=== PATIENT | male | born 1990 | race Caucasian/White ===

== ENCOUNTER 2023-07-18 15:29 | Inpatient (IN) | payer OTHER, SELFPAY ==
[2023-07-18 15:29] VITALS: BP 130/74; PULSE 83; RESP 16; TEMP 36.8; O2SAT 100
[2023-07-18 15:34] VITALS: BMI 27.3
[2023-07-18] MEDS: ibuprofen 600 mg Tablet PO (16:08)
--- NOTE | 2023-07-18 16:48 | PC.NURSE ---
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 He said he then became frustrated because he was having issues applying for a job and was losing his inheritance so he started having thoughts of shooting himself. He stated he would've followed through if he had a gun. Patient says he has been in a spiritual war for a long time. Patient did endorse previous and current visual hallucinations. He said, I just saw my black energy shoot up, as he pointed to the ceiling. Patient also states he sees stars and vividly saw a black and wasp fighting until the wasp turned into a black . He endorses SI yesterday, but when asked if he has any thoughts today he stated, not in the flesh, but I want to put certain thoughts to . Denies HI at this time. Patient is paranoid and says the illuminati is listening and hearing everything, including his and this RN's conversation. Patient spoke up midconversation and stated, I'll do it like the egyptians. They get mummified and then go get the other knowledges and come back to themselves, ya know. He said he had spent a significant amount of time either incarcerated or hospitalized. He listed [facility], and [facility] as a few facilities he was hospitalized at. He currently has a court date of 07/26/23 for possession of methamphetamine and paraphernalia. Patient does admit to use of alcohol, tobacco, and marijuana recently. He also admits to using methamphetamine 2 months ago. Patient cooperative with assessment, but is very animated and very flighty in his thought process.
[2023-07-18] MEDS: trazodone 50 mg Tablet PO (19:54)
[2023-07-18] MEDS: acetaminophen 325 mg Tablet 650 MG PO (19:54)
[2023-07-18] MEDS: OLANZapine 5 mg ODT PO (19:54)
[2023-07-18 20:02] VITALS: BP 119/73; PULSE 89; RESP 18; TEMP 36.9; O2SAT 96
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
[2023-07-19 06:00] VITALS: RESP 16
--- NOTE | 2023-07-19 07:40 | PC.NURSE ---
Patient denies avh and hi this morning. When asked if he has had any thoughts of hurting himself this morning he stated, not really. Well, a little. Like 5%. This RN then asked if anything in particular was triggering this and he replied, ya I talked to my dad last night and I'm gonna have to live with him. Or I could live with my aunt. But I just want to be on my own ya know? And I just can't right now.
[2023-07-19] MEDS: nicotine 21 mg Patch 1 PATCH TRANSDERMA (10:19)
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
--- NOTE | 2023-07-19 13:16 | NPU.GN ---
[facility] Group Topic:football General Mood of Group patient participated in throwing the football to staff and other patients
[2023-07-19 13:46] VITALS: BP 137/75; PULSE 108; RESP 16; TEMP 37; O2SAT 98
[2023-07-19] MEDS: ibuprofen 600 mg Tablet PO (14:56)
[2023-07-19] MEDS: nicotine 4 mg lozenge MUCOUS MEM (15:11)
[2023-07-19] MEDS: hyDROXYzine 25 mg Capsule 50 MG PO (16:40)
[2023-07-19] MEDS: OLANZapine 5 mg ODT PO (18:03)
--- NOTE | 2023-07-19 18:04 | PC.NURSE ---
Addendum entered by Brandy Blair RN 07/19/23 18:06: Zyprexa 10mg odt was given. Original Note: Patient becoming increasingly irritated because staff will not allow him to eat in his room or have his necklace back that he came in with. Patient was told he would be given the necklace when he left and that we had it locked up and safe. He remained agitated despite attempting to verbally de-escalate him. He then stormed off to his room.
[2023-07-19] MEDS: acetaminophen 325 mg Tablet 650 MG PO (18:22)
[2023-07-19] MEDS: nicotine 2 mg Gum BUCCAL (18:43)
[2023-07-19] MEDS: mirtazapine 15 mg Tablet PO (19:46)
[2023-07-19] MEDS: OXcarbazepine 300 mg Tablet PO (19:46)
[2023-07-19] MEDS: trazodone 50 mg Tablet PO (19:47)
[2023-07-19 20:08] VITALS: BP 138/75; PULSE 100; RESP 18; TEMP 36.8; O2SAT 98
[2023-07-20] MEDS: OLANZapine 5 mg ODT PO (05:17)
[2023-07-20 06:00] VITALS: BP 113/54; PULSE 76; RESP 16; O2SAT 98
[2023-07-20] MEDS: paliperidone ER 6 mg Tablet PO (08:50)
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
[2023-07-20] MEDS: ibuprofen 600 mg Tablet PO (11:32)
[2023-07-20] MEDS: nicotine 21 mg Patch 1 PATCH TRANSDERMA (13:23)
[2023-07-20 14:00] VITALS: BP 143/86; PULSE 93; RESP 16; TEMP 36.9; O2SAT 97
[2023-07-20 19:57] VITALS: BP 136/81; PULSE 84; RESP 18; TEMP 36.8; O2SAT 97
[2023-07-20] MEDS: mirtazapine 15 mg Tablet PO (20:25)
[2023-07-20] MEDS: OXcarbazepine 300 mg Tablet PO (20:25)
[2023-07-20] MEDS: trazodone 50 mg Tablet PO (20:25)
[2023-07-21 06:00] VITALS: BP 100/60; PULSE 55; RESP 16; O2SAT 92
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
[2023-07-21] MEDS: paliperidone ER 6 mg Tablet PO (08:38)
[2023-07-21] MEDS: nicotine 21 mg Patch 1 PATCH TRANSDERMA (12:39)
[2023-07-21 12:56] VITALS: BP 142/85; PULSE 95; RESP 17; TEMP 36.6; O2SAT 97
[2023-07-21] MEDS: ibuprofen 600 mg Tablet PO (13:27)
[2023-07-21] MEDS: nicotine 2 mg Gum BUCCAL (15:56)
[2023-07-21] MEDS: hyDROXYzine 25 mg Capsule 50 MG PO (18:13)
[2023-07-21 20:04] VITALS: BP 156/82; PULSE 85; RESP 18; TEMP 36.5; O2SAT 97
[2023-07-21] MEDS: mirtazapine 15 mg Tablet PO (20:41)
[2023-07-21] MEDS: OXcarbazepine 300 mg Tablet PO (20:41)
[2023-07-22 06:00] VITALS: BP 107/64; PULSE 77; RESP 16; TEMP 36.6; O2SAT 96
[2023-07-22] MEDS: paliperidone ER 6 mg Tablet PO (08:13)
[2023-07-22] MEDS: nicotine 21 mg Patch 1 PATCH TRANSDERMA (08:13)
[2023-07-22 14:00] VITALS: BP 125/79; PULSE 103; RESP 18; TEMP 36.5; O2SAT 96
[2023-07-22] MEDS: nicotine 2 mg Gum BUCCAL (15:09)
--- NOTE | 2023-07-22 15:09 | PC.NURSE ---
pt gave this nurse his nicotine patch at 1000 this morning.
--- NOTE | 2023-07-22 15:21 | W.PM.NPUDCS ---
Diagnoses at Discharge Discharge Diagnosis (1) Psychosis: Status: Acute (2) Schizophrenia: Status: Acute Reason for Visit Reason for Visit: Si Brief History: History of Present Illness Chuck Headley is a 33 year old male who presented to an outside hospital with psychosis was given an affidavit and transferred to [facility] and patient was admitted to the neuropsychiatric unit for definitive treatment of those issues. The patient presents today reporting that he currently takes Invega, Strattera, Trileptal, Hydroxyzine, and Remeron. He reports that a couple of days ago he had a really bad day, and he was just ready to end everything, and was having suicidal thoughts. He reports that he has had over twenty psychiatric hospitalizations, stating he has been in and out of the hospital since he was a kid. He reports that he goes to a local counseling center for outpatient services. He reports that he has been on many different medications. The patient endorses smoking cigarettes, up to a pack a day, depending on what he has available. He reports that he occasionally drinks alcohol. He reports that he was on Strattera once before, when he was about 9 or 10 years old, and it caused suicidal thoughts. He reports that Seroquel was effective in the past. He reports hearing audible voices and seeing things. He reports that he would wake up from dreams and feel confusion with what was reality. He endorses daily marijuana use, stating it helps with anxiety and with the voices. He reports that he has used methamphetamine, the first time when he was 28 years old, and looked to that for help with the ADHD, to replace Adderall. He used to use Adderall but hasn?t since being in school or having a job, he reports that when he was on Adderall, he was successful and prosperous. He reports that he has been to drug rehabilitation twice. He reports that he has had one DUI. He endorses other drug related charges. The patient reports that he first started having mental health issues at 7 years old. He saw mythical creatures. He would feel like something was coming to get him, and reports that he thinks someone did come to get him, but he can?t remember what happened or where he went. He reports that he knows certain things that he doesn?t know how he knows, but then will see it on television. He then talked about demons and good and evil. He reports that things would progress to where he was suicidal. He endorses passive wish, lack of enjoyment, low mood, sleep disturbance, and feelings of hopelessness, helplessness, and worthlessness. He reports when he is by himself feeling like he is not really by himself. He reports that he is not the origin of the suicidal thoughts or attempts, it comes from an outside source. And sometimes he is not strong enough to fight them. He reports that the previous antidepressants he has been on have not been effective. He reports that the Remeron seems to be helpful as far as sleep is concerned. He reports that he has tried Wellbutrin and Buspar. He reports that he hasn?t missed any doses of the Invega, but he was not sure about how high his dose is. We discussed that since he is having breakthrough symptoms it is an indication that he should probably be on a higher dose, when it is time for his next shot. His reports his last shot was about two weeks ago. PSYCHIATRIC HISTORY: As above. SUBSTANCE ABUSE HISTORY: As above. FAMILY HISTORY: The patient endorses mental health issues on his dad?s side of the family, reporting that his paternal great [facility] was [facility] the [facility] in her forties or fifties. He reports that he does not really know his mother that much. He endorses some addiction issues on both sides of the family. He is not aware of any suicide attempts or completions. DEVELOPMENTAL HISTORY: The patient reports that he was told that he was when he was born. The patient reports learning to walk and talk and meeting developmental milestones on time. The patient endorses learning support. PSYCHOSOCIAL HISTORY: The patient reports that his mother and father were not together at his , and there were no other children from that union. He reports that his mother had two or three other children. He describes his childhood as cool. He denies neglect or emotional, physical, or sexual abuse. He reports that he went to a boys? home when he was 15 years old. He was away from home for 8 ? years. When asked about traumatic events in his life, he spoke about the time that he was in the boys' home, and time he was in alf, as being tough. He reports that he did not graduate from high school, his highest grade was 11th grade. He endorses being heterosexual, with his longest relationship being 2 ? years. He has not been and has no children. He denies service. He endorses he is spiritual but does not have adventist affiliation. He reports his longest job was about three months. 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 He reports that he is lives in a trailer with his dad. LEGAL HISTORY: The patient reports he spent six or seven years in alf, the longest time at once was 2 ? years. MEDICAL HISTORY: Hospital Course Hospital Course He slowly acclimated to the individual, group and milieu therapies provided.? He presented reporting significant breakthrough symptoms of psychosis on the Invega Sustenna 156 mg dose. We gave him oral Invega and he quickly improved. We continued his other medications as well with positive results. We agreed that when he got his next injection close to the 234 mg IM of Invega. He was discharged with a prescription for that and oral dosing until his injection was due. He did have significant improvement.? He worked with the social work team for appropriate follow-up appointments. He was able to contract for safety outside of the hospital prior to discharge.? At the outside hospital, patient had routine laboratory studies which were within normal limits except for few outliers.? Additionally there was a general medical evaluation which was also within normal limits and revealed no new acute processes. Discharge Summary: At the time of discharge, he denied psychosis or lethality and his psychosis was resolving. Mood and anxiety were well managed.? Patient endorsed a plan to avoid all drugs of abuse and follow-up with the aftercare recommendations of the treatment team.? Patient was evaluated and deemed to be absent credible lethality, and received the maximum benefit from inpatient hospitalization, so he was discharged. Involuntary Hold Information 96 Hour Hold: 96 Hour Involuntary Admission: Yes 96 Hour Hold Ending Date: 07/23/23 Mental Status Exam MSE Comments: This is an overweight white male in hospital with adequate grooming and limited eye contact. Very full eisenberg. No abnormal movements except for mild psychomotor retardation. Mostly cooperative with exam in mild distress. Speech was slightly increased rate decreased volume. Mood described as okay affect subdued. Thought process linear. And mostly organized. Thought: He denied suicidal or homicidal ideation, he endorsed resolving paranoia and no significant delusions noted, he endorsed resolving auditory and denied visual hallucinations. Attention and concentration were intact memory appeared reliable but none were fully tested. Alert and oriented x3. Insight, judgment and impulse control limited Discharge Data Vitals: Last Vital Signs Temp 97.7 F 07/22/23 14:00 Pulse 103 H 07/22/23 14:00 Resp 18 07/22/23 14:00 BP 125/79 07/22/23 14:00 Pulse Ox 96 07/22/23 14:00 O2 Del Method Room Air 07/21/23 20:04 Discharge Plan Discharge Patient Disposition: Home Condition: Stable Prescriptions: New Invega Sustenna 234 mg/1.5 mL syringe 234 mg IM Q30D Qty: 1.5 2RF Rx Instructions: Injection 08/01/2023 then as directed Continued hydroxyzine HCl 50 mg tablet 50 mg PO BID PRN (Reason: Anxiety) 30 Days Qty: 30 1RF oxcarbazepine 300 mg tablet 300 mg PO BEDTIME 30 Days Qty: 30 1RF mirtazapine 15 mg tablet 15 mg PO BEDTIME 30 Days Qty: 30 1RF Invega 6 mg tablet extended release 24 hr 6 mg PO DAILY 10 Days Qty: 10 0RF Rx Instructions: Take for 10 days and then discontinue. We will get increased Invega Sustenna injection. Discontinued atomoxetine [Strattera] 25 mg capsule 25 mg PO DAILY Discharge Orders: Discharge Order (Routine); Ordered 07/22/23 Ordered By: Pancho Purcell Referrals: [facility] [Other] - 07/30/23 11:00 am Discharge Diet: Regular Discharge Activity: Resume usual activity Patient Instructions: Schizophrenia (GEN), Opioid Safety Discharge Attestations NPU Time Spent in Discharge Care*: less than 30 min Specific Discharge Activities: Specific discharge activities: educating patient, discussing with telehealth case manager/social workers/dc planners, documenting/other paperwork and evaluating patient/reviewing data Coding Level of Care Code Acute Chg FW DC note Diagnoses Psychosis F29 Schizophrenia F20.9
[2023-07-22 15:49] VITALS: BP 125/79; PULSE 103; RESP 18; TEMP 36.5; O2SAT 96
== END 2023-07-22 16:31 | disposition home or self-care (01) | DRG 885 ==
PROVIDERS: Admitting Provider Psychiatry & Neurology Psychiatry; Visit Provider Psychiatry & Neurology Psychiatry
DX: F29 Unspecified psychosis not due to a substance or known physiological condition (principal); Z81.8 Family history of other mental and behavioral disorders; Z81.4 Family history of other substance abuse and dependence; F90.9 Attention-deficit hyperactivity disorder, unspecified type
CPT/HCPCS: 97150; 97165; 99238